=== PATIENT | male | born 1965 | race Caucasian/White ===

== ENCOUNTER 2023-05-23 17:42 | Emergency (ER) | payer MEDICAID ==
[~2023-05-23] VITALS: Ht 167.6 cm; Wt 72.0 kg
[2023-05-23 17:59] VITALS: BP 109/65; PULSE 94; RESP 16; TEMP 98.1; O2SAT 94
[2023-05-23] MEDS ORDERED: SODIUM CHLORIDE 0.9% 1,000 ML IV ONE (18:15)
[2023-05-23 19:36] LABS: DIFFERENTIAL COMMENT 0; EOSINOPHILS % 9.7 % (0.0-5.0); HEMATOCRIT. 42.2 % (42.0-52.0); HEMOGLOBIN. 14.5 g/dL (14.0-18.0); LYMPHOCYTES % 36.1 % (20.0-50.0); MEAN CORPUSCULAR HEMOGLOBIN 34.7 pg (28.0-32.0); MEAN CORPUSCULAR HGB CONC 34.4 g/dL (31.0-37.0); MEAN CORPUSCULAR VOLUME 100.8 fL (80.0-94.0); MEAN PLATELET VOLUME 8.6 fl (7.4-10.4); NEUTROPHILS % 41.2 % (40.0-76.0); PLATELET 207 x1000/uL (130-400); RED BLOOD CELL COUNT 4.19 mill/uL (4.7-6.1); RED CELL DISTRIBUTION WIDTH 13.7 % (11.6-14.6); WHITE BLOOD COUNT 5.9 x1000/uL (4.5-11.0)
[2023-05-23 19:37] LABS: INDEX HEMOLYSI 1 (1-3); INDEX ICTERIC 1 (1-4); INDEX LIPEMIC 1 (1-3)
[2023-05-23 19:44] LABS: BILIRUBIN TOTAL 0.3 mg/dL (0.1-1.0); ETHANOL BLOOD 234 mg/dL (-10)
[2023-05-23 20:10] LABS: ALANINE AMINOTRANSFERASE 83 IU/L (13-61); ALBUMIN 3.6 g/dL (3.4-5.0); ASPARTATE AMINOTRANSFERASE 58 IU/L (15-37); CALCIUM 8.8 mg/dL (8.5-10.1); CARBON DIOXIDE 29 mEq/L (21-32); CHLORIDE 109 mEq/L (98-107); CREATININE 0.7 mg/dL (0.6-1.3); GLUCOSE 99 mg/dL (70-105); POTASSIUM 4.5 mEq/L (3.5-5.1); SODIUM 141 mEq/L (136-145); UREA NITROGEN BLOOD 8 mg/dL (7-21)
[2023-05-23] MEDS ORDERED: FOLIC ACID 1 MG, THIAMINE HCL 100 MG, MVI, ADULT NO.1 10 ML in DEXTROSE 5% WATER 1,000 ML IV ONE ×4 (21:00)
== END 2023-05-24 00:11 | disposition home or self-care (01) ==
LOC: ER 17:42
DX: F10.129 Alcohol abuse with intoxication, unspecified (principal)
CPT/HCPCS: 80053; 80320; 85025; 36415; 99283; J7030; J3411; J3490; J7070; G0480